=== PATIENT | female | born 1985 | race Caucasian/White ===

== ENCOUNTER 2020-09-25 22:53 | Inpatient (IN) | payer MEDICAID ==
[~2020-09-25] VITALS: Ht 152.4 cm; Wt 61.2 kg
[2020-09-26] MEDS ORDERED: SODIUM CHLORIDE 0.9% 1,000 ML IV ONE
[2020-09-26 01:01] LABS: CHLORIDE 108 mEq/L (98-107)
[2020-09-26 01:05] LABS: BASOPHILS % 0.2 % (0.0-2.0); EOSINOPHILS % 0.4 % (0.0-5.0); HEMATOCRIT. 35.7 % (36.0-48.0); HEMOGLOBIN. 12.4 g/dL (12.0-16.0); LYMPHOCYTES % 12.6 % (20.0-50.0); MEAN CORPUSCULAR HEMOGLOBIN 29.3 pg (28.0-32.0); MEAN CORPUSCULAR VOLUME 84.5 fL (81.0-99.0); MEAN PLATELET VOLUME 8.9 fl (7.4-10.4); MONOCYTES % 7.7 % (2.0-8.0); NEUTROPHILS % 79.1 % (40.0-76.0); PLATELET 229 x1000/uL (130-400); RED BLOOD CELL COUNT 4.23 mill/uL (4.2-5.4); RED CELL DISTRIBUTION WIDTH 14.1 % (11.6-14.6)
[2020-09-26 01:09] LABS: ETHANOL BLOOD < 10 mg/dL
[2020-09-26 01:38] LABS: HCG SCREEN NEGATIVE
[2020-09-26 01:58] LABS: PROTHROMBIN TIME 10.4 sec (9.6-11.0)
[2020-09-26] MEDS ORDERED: MORPHINE SULFATE 4 MG/ML CPJ (NOT FOR IM USE) IV ONE (03:15)
[2020-09-26 04:01] LABS: CLARITY URINE CLEAR (CLEAR); COLOR URINE YELLOW (YELLOW); KETONES URINE NEGATIVE (NEGATIVE); LEUKOCYTE ESTERASE URINE TRACE (NEGATIVE); NITRITE URINE NEGATIVE (NEGATIVE); OCCULT BLOOD URINE NEGATIVE (NEGATIVE); PH URINE 5.5 (4.5-8.0); PROTEIN URINE NEGATIVE (NEGATIVE); SPECIFIC GRAVITY URINE 1.011 (1.005-1.030); UROBILINOGEN URINE 0.2 E.U./dL (0.2-1.0)
[2020-09-26 04:12] LABS: *AMPHETAMINES SCREEN URINE NEGATIVE (NEGATIVE); *BARBITURATES SCREEN URINE NEGATIVE (NEGATIVE); *BENZODIAZEPINES SCREEN URINE NEGATIVE (NEGATIVE); *COCAINE SCREEN URINE NEGATIVE (NEGATIVE)
[2020-09-26 04:13] LABS: CANNABINOID URINE SCREEN NEGATIVE (NEGATIVE); METHADONE URINE SCREEN NEGATIVE (NEGATIVE); OPIATES URINE SCREEN NEGATIVE (NEGATIVE); PHENCYCLIDINE URINE SCREEN NEGATIVE (NEGATIVE)
[2020-09-26] MEDS ORDERED: CEFTRIAXONE 1 G PREMIX 50 ML IV ONE (05:00)
[2020-09-26] MEDS ORDERED: KETOROLAC 15MG/ML VIAL IV ONE (07:00)
[2020-09-26 08:30] VITALS: BP 109/70
[2020-09-26] MEDS ORDERED: INFLUENZA VACCINE 05/PF 0.5 ML VIAL IM ONE (10:00)
[2020-09-26] MEDS ORDERED: CEFTRIAXONE 1 G PREMIX 50 ML IV SCH (10:15)
[2020-09-26] MEDS ORDERED: KETOROLAC 30MG/ML VIAL IV PRN (10:15)
[2020-09-26] MEDS ORDERED: ONDANSETRON HCL 4MG/2ML INJ IV PRN (10:15)
[2020-09-26] MEDS ORDERED: LACTULOSE 20G/30ML UDC PO NR (11:04)
[2020-09-26 12:00] VITALS: BP 109/76
[2020-09-26] MEDS: CEFTRIAXONE 1,000 MG in DEXTROSE 5% WATER 50 ML IV SCH (12:13)
[2020-09-26] MEDS ORDERED: HYDROCODONE/ACETAMINOPHEN 5/325MG TABLET PO PRN (14:15)
[2020-09-26] MEDS ORDERED: HYDROCODONE/ACETAMINOPHEN 10/325MG TABLET PO PRN (14:15)
[2020-09-26] MEDS: TAMSULOSIN HCL 0.4MG SR CAPSULE PO SCH (14:52)
[2020-09-26 16:00] VITALS: BP 118/82
[2020-09-26 20:00] VITALS: BP 102/67
[2020-09-27] VITALS: BP 84/51
[2020-09-27] MEDS: ACETAMINOPHEN 325MG TABLET PO PRN ×2 (00:14→13:06)
[2020-09-27 00:30] VITALS: BP 97/57
[2020-09-27 04:00] VITALS: BP 93/48
[2020-09-27 07:51] VITALS: BP 101/67
[2020-09-27] MEDS: TAMSULOSIN HCL 0.4MG SR CAPSULE PO SCH (09:22)
[2020-09-27] MEDS: CEFTRIAXONE 1,000 MG in DEXTROSE 5% WATER 50 ML IV SCH (10:40)
[2020-09-27 12:00] VITALS: BP 97/60
[2020-09-27 12:11] VITALS: BP 97/60
== END 2020-09-27 13:55 | disposition home or self-care (01) | DRG 465 ==
LOC: ER 22:53 → EDBEDREQ 09-26 03:43 → EDBEDREQTM 09-26 03:43 → 6EST 09-26 04:04 → ENRESERV 09-26 07:17
PROVIDERS: ADMIT Internal Medicine; ATTEND Internal Medicine
DX: N13.2 Hydronephrosis with renal and ureteral calculous obstruction (principal); E87.8 Other disorders of electrolyte and fluid balance, not elsewhere classified; K59.00 Constipation, unspecified; R74.01 Elevation of levels of liver transaminase levels
CPT/HCPCS: 36415; 74177; 80053; 80305; 80320; 81003; 83605; 84703; 85025; 90686; 93005; 99285; J0696; J1885; J2270; J2405; J7030; J7040; J7060; G0480